=== PATIENT | female | born 1950 | race Caucasian/White ===

== ENCOUNTER → 2018-10-10 | Outpatient (CLI) | payer MEDICARE ==
--- NOTE | 2018-10-10 09:07 | BD ---
EXAMINATION TYPE: Axial Bone Density DATE OF EXAM: 10/10/2018 COMPARISON: NONE CLINICAL HISTORY: Postmenopausal female Height: 5 FT 1 /4 IN Weight: 156 FRAX RISK QUESTIONS: History of Fracture in Adulthood: YES RISK FACTORS HISTORY OF: Active: YES Postmenopausal woman: TOTAL SINDIST AGE 48 Take estrogen and/or progesterone medications: TOOK HRT FOR 12 YEARS BUT NO LONGER TAKES MEDICATIONS: Thyroid Medications: YES Which medication: LEVOTHYROXINE How Lon + YEARS Additional Medications: LEVOTHYROXINE, WELLBUTRIN, PROVIGIL, ATORVASTATIN, TOPAMAX, AXERT, MECLIZINE NEEDED, CYCLOBENAPRINE Additional History: EXAM MEASUREMENTS: Bone mineral densitometry was performed using the [employer] System. Bone mineral density as measured about the Lumbar spine is: ----- L1-L4(G/cm2): 1.036 T Score Values are as follows: ----- L2: -0.9 ----- L3: -1.2 ----- L4: -1.2 ----- L1-L4: -1.2 BASELINE Bone mineral density about the R hip (g/cm2): 0.867 Bone mineral density about the L hip (g/cm2): 0.861 T Score values are as follows: -----R Neck: -1.2 -----L Neck: -1.3 -----R Total: -0.5 -----L Total: -0.5 BASELINE IMPRESSION: Osteopenia (T Score between -2.5 and -1). There is slightly increased risk of fracture and the patient may be considered for treatment. Re-Screen 2-5 years. NOTE: T-SCORE=SD OF THE YOUNG ADULT MEAN.
--- NOTE | 2018-10-12 09:26 | MM ---
Reason for exam: screening (asymptomatic). Last mammogram was performed 5 years and 2 months ago. History: Patient is postmenopausal. Benign US RT VAD breast biopsy of the right breast, August 22, 2013. Reductions, November 02, 2012. Took estrogen for 12 years beginning at age 48. Physical Findings: A clinical breast exam by your physician is recommended on an annual basis and results should be correlated with mammographic findings. MG 3D Screening Mammo W/Cad Bilateral CC and MLO view(s) were taken. Prior study comparison: August 04, 2013, CAD bilateral diagnostic mammogram. April 07, 2011, bilateral digital screening mammo w/CAD. There are scattered fibroglandular densities. Benign appearing bilateral calcifications. Previous mammotome biopsy in the right breast. ASSESSMENT: Benign, BI-RAD 2 RECOMMENDATION: Routine screening mammogram of both breasts in 1 year.
== END | disposition home or self-care (01) ==
LOC: RADMAMWWP 06:49
PROVIDERS: ATTEND Family Medicine
DX: Z12.31 Encounter for screening mammogram for malignant neoplasm of breast (principal); M85.851 Other specified disorders of bone density and structure, right thigh; M85.852 Other specified disorders of bone density and structure, left thigh; M85.88 Other specified disorders of bone density and structure, other site
CPT/HCPCS: 77063; 77067; 77080

== ENCOUNTER → 2021-09-29 | Outpatient (CLI) | payer MEDICARE ==
--- NOTE | 2021-10-01 13:03 | MM ---
Reason for exam: screening (asymptomatic). Last mammogram was performed 3 years ago. History: Patient is postmenopausal. Benign US RT VAD breast biopsy of the right breast, August 22, 2013. Reductions, November 02, 2012. Took estrogen for 12 years beginning at age 48. Physical Findings: A clinical breast exam by your physician is recommended on an annual basis and results should be correlated with mammographic findings. MG 3D Screening Mammo W/Cad Bilateral CC and MLO view(s) were taken. Prior study comparison: October 10, 2018, bilateral MG 3d screening mammo w/cad. There are scattered fibroglandular densities. Previous mammotome biopsy in the right breast. No significant changes when compared with prior studies. ASSESSMENT: Negative, BI-RAD 1 RECOMMENDATION: Routine screening mammogram of both breasts in 1 year.
== END | disposition home or self-care (01) ==
LOC: RADMAMWWP 14:13
PROVIDERS: ATTEND Family Medicine
DX: Z12.31 Encounter for screening mammogram for malignant neoplasm of breast (principal)
CPT/HCPCS: 77063; 77067

== ENCOUNTER → 2023-03-11 | Outpatient (CLI) | payer MEDICARE ==
--- NOTE | 2023-03-11 14:40 | BD ---
EXAMINATION TYPE: Axial Bone Density DATE OF EXAM: 03/11/2023 CLINICAL HISTORY: 72 years old Female. ICD-10 CODE: Z78.0 ASYMPTOMATIC MENOPAUSAL Height: 60.7 Weight: 161 FRAX RISK QUESTIONS: Family History (Parent hip fracture): not hip History of Fracture in Adulthood: yes RISK FACTORS HISTORY OF: hx of foot fxs as an adult hx of mother with osteoporosis and dowger hump and spinal fxs Postmenopausal woman: yes, at age 48, total hyst Take estrogen and/or progesterone medications: in the past for about 10 yrs Lost more than 2 inches in height since high school: yes Hyperparathyroidism: no Adrenal Insufficiency: no MEDICATIONS: Thyroid Medications: yes, synthroid product for over 30 yrs Additional Medications: wellbutrin, cholesterol meds, vit d and calcium, Additional History: anxiety, cholesterol, thyroid, adult fx, hx of early florencia with hormones, hx of [place] kidney stones, scoliosis. EXAM MEASUREMENTS: Bone mineral densitometry was performed using the [employer] System. Bone mineral density as measured about the Lumbar spine is: ----- L1-L4(G/cm2): 0.946 T Score Values are as follows: ----- L1: -2.2 ----- L2: -2.3 ----- L3: -2.7 ----- L4: -1.2 ----- L1-L4: -1.9 Z Score Values are as follows: ----- L1: -0.7 ----- L2: -0.8 ----- L3: -1.2 ----- L4: 0.3 ----- L1-L4: -0.5 Bone mineral density has: Decreased -8.7% since study of: 10.10.2018 Bone mineral density about the R hip (g/cm2): 0.875 Bone mineral density about the L hip (g/cm2): 0.870 T Score values are as follows: -----R Neck: -1.2 -----L Neck: -1.2 -----R Total: -0.6 -----L Total: -0.2 Z Score values are as follows: -----R Neck: 0.5 -----L Neck: 0.5 -----R Total: 0.9 -----L Total: 1.3 Bone mineral density has: Increased 1.8% since study of: 10.10.2018 FRAX%s: The graph provided illustrates a 15.1% chance for a major osteoporotic fx and a 2.1% chance f or the hips probability for fx in 10 years time. IMPRESSION: Osteoporosis (T Score less than -2.5). There is increased fracture risk and therapy is usually indicated based on age. Re-Screen 1-2 years. NOTE: T-SCORE=SD OF THE YOUNG ADULT MEAN.
--- NOTE | 2023-03-12 11:51 | MM ---
Reason for Exam: Screening (asymptomatic). Last mammogram was performed 1 year(s) and 5 month(s) ago. Patient History: Menarche at age 13. First Full-Term at age 18. Left ovary removed at age 48. Right ovary removed at age 48. Hysterectomy at age 48. Postmenopausal. Estrogen, starting at age 48 for 12 years. 11/02/2012, Reduction. 08/22/2013, Benign Core Biopsy on the right side. Risk Values: Yaima 5 year model risk: 1.4%. NCI Lifetime model risk: 3.4%. Prior Study Comparison: 08/04/2013 Bilateral Diagnostic Mammogram, [facility]. 10/10/2018 Bilateral Screening Mammogram, [facility]. 09/29/2021 Bilateral Screening Mammogram, [facility]. Tissue Density: There are scattered fibroglandular densities. Findings: Analyzed By CAD. There is no suspicious group of microcalcifications or new suspicious mass in either breast. Overall Assessment: Negative, BI-RAD 1 Management: Screening Mammogram of both breasts in 1 year. . Patient should continue monthly self-breast exams. A clinical breast exam by your physician is recommended on an annual basis. This exam should not preclude additional follow-up of suspicious palpable abnormalities. Note on Yaima scores and lifetime risk: 1. A Yaima score greater than 3% is considered moderate risk. If this is the case, consider specialist referral to assess eligibility for a risk reducing agent. 2. If overall lifetime risk for the development of breast cancer is 20% or higher, the patient may qualify for future screening with alternating mammogram and breast MRI. Electronically signed and approved by: Malvin Dill M.D. Radiologis
== END | disposition home or self-care (01) ==
LOC: RADMAMWWP 11:54
PROVIDERS: ATTEND Family Medicine
DX: Z12.31 Encounter for screening mammogram for malignant neoplasm of breast (principal); Z13.820 Encounter for screening for osteoporosis; M85.89 Other specified disorders of bone density and structure, multiple sites; M81.0 Age-related osteoporosis without current pathological fracture; Z78.0 Asymptomatic menopausal state
CPT/HCPCS: 77063; 77067; 77080

== ENCOUNTER → 2023-10-12 | Outpatient (CLI) | payer MEDICARE ==
--- NOTE | 2023-10-12 10:14 | US ---
EXAMINATION TYPE: US abdomen limited DATE OF EXAM: 10/12/2023 COMPARISON: 11/30/2015 CLINICAL INDICATION: Female, 73 years old with history of R10.11 RIGHT UPPER QUADRANT PAIN; Intermitt ent RUQ pain for 1 year. Nausea, vomiting TECHNIQUE: Multiple sonographic images of the right upper quadrant are obtained. FINDINGS: EXAM MEASUREMENTS: Liver Length: 12.8 cm Gallbladder Wall: 0.3 cm CBD: 0.4 cm Right Kidney: 10.5 x 3.5 x 4.3 cm Pancreas: Tail obscured by overlying bowel gas Liver: appears wnl Gallbladder: no evidence of stones Evidence for sonographic Wilson's sign: no CBD: wnl Right Kidney: Extrarenal pelvis. No evidence for hydronephrosis. IMPRESSION: 1. No evidence for acute process. 2. The renal pelvis of the right kidney similar dating back to at least 2015.
== END | disposition home or self-care (01) ==
LOC: RADUSWWP 08:44
PROVIDERS: ATTEND Family Medicine
DX: R10.11 Right upper quadrant pain (principal)
CPT/HCPCS: 76705